=== PATIENT | male | born 1950 | race Caucasian/White ===

== ENCOUNTER → 2016-06-04 | Outpatient (REF) | payer MEDICARE ==
[~2016-06-04] MED LIST: AMLO10TA2 PO; ASPI81TA85 PO; ATEN50TA9 PO; GABA600T PO; LISI30TA4 PO; MAGN250T9 PO; OMEP10CASR PO; OMEP40CA2 PO; PERC5TAB6 PO; SIMV40TA2 PO; TYLE325T5 PO; [UNRECOGNIZED DRUG - CODE] PO; fenofibrate OR; multivitamin OR; tylenol OR; vitamin D OR
[2016-06-04 18:27] LABS: PERCENT SATURATION 23.1 % (19.7-37.4)
== END ==
LOC: M LAB REF 16:48
PROVIDERS: ATTEND Internal Medicine Nephrology
DX: D64.9 Anemia, unspecified (principal)

== ENCOUNTER → 2016-07-24 | Outpatient (REF) | payer MEDICARE ==
[2016-07-24 12:42] LABS: ALBUMIN 4.1 GM/DL (3.2-5.2); ALBUMIN/GLOBULIN RATIO 1.46 (1.00-1.93); BILIRUBIN,TOTAL 0.5 MG/DL (0.2-1.0); CALCIUM LEVEL 9.1 MG/DL (8.8-10.2); CREATININE FOR GFR 1.93 MG/DL (0.70-1.30); GLOMERULAR FILTRATION RATE 37.3 (>49); TOTAL PROTEIN 6.9 GM/DL (6.4-8.2)
== END ==
LOC: M SFHCCLAY 07:40
PROVIDERS: ATTEND Family Medicine
DX: E78.2 Mixed hyperlipidemia (principal); E11.8 Type 2 diabetes mellitus with unspecified complications; Z12.5 Encounter for screening for malignant neoplasm of prostate
CPT/HCPCS: 80053; 80061; 83036; G0103

== ENCOUNTER → 2016-07-29 | Outpatient (CLI) | payer MEDICARE ==
--- NOTE | 2016-07-29 09:56 | REP ---
Clinical: Dyspnea . Comparison: 04/12/2015 . Technique: PA and lateral. Findings: The mediastinum and cardiac silhouette are normal. The lung hughes are clear and without acute consolidation, effusion, or pneumothorax. The skeletal structures are intact and normal. Impression: 1. No acute cardiopulmonary process.
== END ==
LOC: M CLY 09:12
PROVIDERS: ATTEND Family Medicine
DX: R06.09 Other forms of dyspnea (principal)
CPT/HCPCS: 71020; G0463

== ENCOUNTER → 2017-07-28 | Outpatient (REF) | payer MEDICARE ==
[2017-07-28 12:17] LABS: ALBUMIN 4.2 GM/DL (3.2-5.2); ALKALINE PHOSPHATASE 39 U/L (45-117); ALT/SGPT 50 U/L (12-78); ANION GAP 6 MEQ/L (8-16); AST/SGOT 27 U/L (7-37); BILIRUBIN,TOTAL 0.6 MG/DL (0.2-1.0); BLOOD UREA NITROGEN 46 MG/DL (7-18); CALCIUM LEVEL 9.1 MG/DL (8.8-10.2); CARBON DIOXIDE LEVEL 25 MEQ/L (21-32); CHLORIDE LEVEL 110 MEQ/L (98-107); CHOLESTEROL LEVEL 131 MG/DL (<200); CREATININE FOR GFR 1.58 MG/DL (0.70-1.30); GLOMERULAR FILTRATION RATE 46.8 (>49); GLUCOSE, FASTING 114 MG/DL (70-100); HDL CHOLESTEROL 37 MG/DL (>40); LDL CHOLESTEROL 67.4 MG/DL (<100); NON-HDL-C 94 MG/DL; POTASSIUM SERUM 4.7 MEQ/L (3.5-5.1); PSA SCREENING 0.91 NG/ML (< 4.0); SODIUM LEVEL 141 MEQ/L (136-145); TOTAL PROTEIN 7.2 GM/DL (6.4-8.2); TRIGLYCERIDES LEVEL 133 MG/DL (<150)
[2017-07-28 12:23] LABS: ESTIMATED AVERAGE GLUCOSE 123 MG/DL (60-110); HEMOGLOBIN A1c 5.9 %
[2017-07-28 13:04] LABS: CREATININE, URINE 88.7 MG/DL; MALB URINE SIEMENS 13.5 MG/L; MAU/CREAT RATIO 15.2 MCG/MG (0.0-30.0)
== END ==
LOC: M SFHCCLAY 07:49
DX: E78.2 Mixed hyperlipidemia (principal); E11.8 Type 2 diabetes mellitus with unspecified complications; Z12.5 Encounter for screening for malignant neoplasm of prostate
CPT/HCPCS: 80053

== ENCOUNTER → 2017-12-11 | Outpatient (REF) | payer MEDICARE ==
[2017-12-11 11:49] LABS: ESTIMATED AVERAGE GLUCOSE 108 MG/DL (60-110); HEMOGLOBIN A1c 5.4 %
[2017-12-11 12:12] LABS: ALBUMIN 3.9 GM/DL (3.2-5.2); ALBUMIN/GLOBULIN RATIO 1.22 (1.00-1.93); ALKALINE PHOSPHATASE 61 U/L (45-117); ALT/SGPT 40 U/L (12-78); ANION GAP 7 MEQ/L (8-16); AST/SGOT 26 U/L (7-37); BILIRUBIN,TOTAL 0.5 MG/DL (0.2-1.0); BLOOD UREA NITROGEN 39 MG/DL (7-18); CALCIUM LEVEL 8.3 MG/DL (8.8-10.2); CARBON DIOXIDE LEVEL 26 MEQ/L (21-32); CHLORIDE LEVEL 107 MEQ/L (98-107); CREATININE FOR GFR 1.22 MG/DL (0.70-1.30); GLOMERULAR FILTRATION RATE > 60.0 (>49); GLUCOSE, FASTING 104 MG/DL (70-100); POTASSIUM SERUM 4.4 MEQ/L (3.5-5.1); SODIUM LEVEL 140 MEQ/L (136-145); TOTAL PROTEIN 7.1 GM/DL (6.4-8.2)
== END ==
LOC: M SFHCCLAY 08:24
DX: I12.9 Hypertensive chronic kidney disease with stage 1 through stage 4 chronic kidney disease, or unspecified chronic kidney disease (principal); R73.01 Impaired fasting glucose
CPT/HCPCS: 80053

== ENCOUNTER → 2018-06-10 | Outpatient (REF) | payer MEDICARE ==
[~2018-06-10] MED LIST changes: -AMLO10TA2 PO; +AMLO10TA5 PO; -GABA600T PO; +GABA600T4 PO; +LISI-672 PO; -LISI30TA4 PO; +PERC5TAB12 PO; -PERC5TAB6 PO
[2018-06-10 12:03] LABS: HEMOGLOBIN A1c 5.9 %
[2018-06-10 12:15] LABS: ALBUMIN 4.1 GM/DL (3.2-5.2); ALT/SGPT 52 U/L (12-78); BILIRUBIN,TOTAL 0.5 MG/DL (0.2-1.0); BLOOD UREA NITROGEN 50 MG/DL (7-18); CALCIUM LEVEL 8.6 MG/DL (8.8-10.2); CARBON DIOXIDE LEVEL 26 MEQ/L (21-32); CHLORIDE LEVEL 105 MEQ/L (98-107); CHOLESTEROL LEVEL 177 MG/DL (<200); CHOLESTEROL RISK RATIO 6.321 (<5); CREATININE FOR GFR 1.27 MG/DL (0.70-1.30); GLUCOSE, FASTING 129 MG/DL (70-100); HDL CHOLESTEROL 28 MG/DL (>40); NON-HDL-C 149 MG/DL; POTASSIUM SERUM 4.6 MEQ/L (3.5-5.1); SODIUM LEVEL 138 MEQ/L (136-145); TOTAL PROTEIN 6.8 GM/DL (6.4-8.2); TRIGLYCERIDES LEVEL 590 MG/DL (<150)
== END ==
LOC: M SFHCCLAY 08:11
PROVIDERS: ATTEND Family Medicine
DX: R73.01 Impaired fasting glucose (principal); E78.2 Mixed hyperlipidemia

== ENCOUNTER → 2018-06-16 | Outpatient (CLI) | payer MEDICARE ==
--- NOTE | 2018-06-16 10:07 | REP ---
BILATERAL HIP STUDY: Four views. HISTORY: Bilateral hip pain. FINDINGS: AP and frog-leg views of each hip are presented. There is fairly prominent tendon insertion site spurring noted bilaterally consistent with an enthesopathy. There is bilateral chondrocalcinosis at the hip and mild osteoarthritis of each hip is seen. Vascular calcification is noted. IMPRESSION: Tendon insertion site spurring present bilaterally consistent with enthesopathy. Mild osteoarthritis noted bilaterally. Chondrocalcinosis. No acute bony abnormality.
== END ==
LOC: M CLY 08:43
PROVIDERS: ATTEND Family Medicine
DX: M16.0 Bilateral primary osteoarthritis of hip (principal); M11.251 Other chondrocalcinosis, right hip; M11.252 Other chondrocalcinosis, left hip; M25.751 Osteophyte, right hip; M25.752 Osteophyte, left hip; M25.552 Pain in left hip; M25.551 Pain in right hip
CPT/HCPCS: 73502; G0463

== ENCOUNTER → 2018-08-07 | Outpatient (REF) | payer MEDICARE ==
[2018-08-07 14:32] LABS: BASO # 0.1 10^3/uL (0.0-0.2); BASO % 0.7 % (0.0-1.0); EOS # 0.2 10^3/uL (0.0-0.50); EOS % 2.7 % (0.0-3.0); HEMATOCRIT 44.9 % (42.0-52.0); HEMOGLOBIN 14.6 g/dl (13.5-17.5); LYMPH # 1.1 10^3/uL (1.5-4.5); LYMPH % 14.5 % (24.0-44.0); MEAN CORPUSCULAR HEMOGLOBIN 27.8 pg (27.0-33.0); MEAN CORPUSCULAR HGB CONC 32.5 g/dl (32.0-36.5); MEAN CORPUSCULAR VOLUME 85.5 fl (80.0-96.0); MONO # 0.6 10^3/uL (0.0-0.8); MONO % 8.2 % (0.0-5.0); NEUTROPHILS # 5.3 10^3/uL (1.8-7.7); NEUTROPHILS % 73.2 % (36.0-66.0); PLATELET COUNT, AUTOMATED 202 10^3/uL (150-450); RED BLOOD COUNT 5.25 10^6/uL (4.30-6.10); WHITE BLOOD COUNT 7.3 10^3/uL (4.0-10.0)
== END ==
LOC: M LAB REF 14:16
PROVIDERS: ATTEND Internal Medicine Nephrology
DX: N18.9 Chronic kidney disease, unspecified (principal); D63.1 Anemia in chronic kidney disease

== ENCOUNTER → 2018-12-17 | Outpatient (REF) | payer MEDICARE ==
[2018-12-17 11:41] LABS: ALBUMIN 3.7 GM/DL (3.2-5.2); ALT/SGPT 46 U/L (12-78); BILIRUBIN,TOTAL 0.5 MG/DL (0.2-1.0); BLOOD UREA NITROGEN 28 MG/DL (7-18); CALCIUM LEVEL 8.7 MG/DL (8.8-10.2); CARBON DIOXIDE LEVEL 29 MEQ/L (21-32); CHLORIDE LEVEL 104 MEQ/L (98-107); CHOLESTEROL LEVEL 148 MG/DL (<200); CHOLESTEROL RISK RATIO 5.285 (<5); CREATININE FOR GFR 1.21 MG/DL (0.70-1.30); GLOMERULAR FILTRATION RATE > 60.0 (>49); GLUCOSE, FASTING 119 MG/DL (70-100); HDL CHOLESTEROL 28 MG/DL (>40); NON-HDL-C 120 MG/DL; POTASSIUM SERUM 4.3 MEQ/L (3.5-5.1); SODIUM LEVEL 141 MEQ/L (136-145); TOTAL PROTEIN 6.7 GM/DL (6.4-8.2); TRIGLYCERIDES LEVEL 536 MG/DL (<150)
[2018-12-17 12:21] LABS: MALB URINE SIEMENS 62.2 MG/L; MAU/CREAT RATIO 51.8 MCG/MG (0.0-30.0)
== END ==
LOC: M SFHCCLAY 08:43
PROVIDERS: ATTEND Family Medicine
DX: E11.8 Type 2 diabetes mellitus with unspecified complications (principal); E78.2 Mixed hyperlipidemia; I10 Essential (primary) hypertension

== ENCOUNTER → 2018-12-22 | Outpatient (CLI) | payer MEDICARE ==
[~2018-12-22] MED LIST changes: -OMEP40CA2 PO; +OMEP40CA97 PO
--- NOTE | 2018-12-22 09:38 | REP ---
Chest x-ray: Two views. History: Cough. Comparison chest x-ray: July 29, 2016. Findings: The lungs are symmetrically aerated and clear. Pleural angles are sharp. Heart is not enlarged. There are degenerative changes in the thoracic spine. Multiple old rib fractures are noted bilaterally. Impression: No acute disease. Electronically Signed by Mahesh Lynn MD 12/22/2018 09:30 A
== END ==
LOC: M CLY 09:04
PROVIDERS: ATTEND Family Medicine
DX: M51.34 Other intervertebral disc degeneration, thoracic region (principal); R05 Cough
CPT/HCPCS: 71046; 90682; 94010; G0008; G0463

== ENCOUNTER → 2019-01-25 | Outpatient (CLI) | payer MEDICARE ==
--- NOTE | 2019-01-25 13:55 | REP ---
Three-phase bone scan of the lumbar spine and hips. History: Lumbar disc degeneration versus hip osteoarthritis. Question loose hardware versus hip osteoarthritis. Comparison hip radiographs are from June 16, 2018. Comparison lumbar spine series is from April 11, 2015. The patient is status post L4-5 dorsal fixation hardware placement. Technique: 22.0 mCi technetium 99m MDP is injected and standard three-phase imaging was acquired. Scintigraphic findings: The anterior and posterior flow study is normal. Blood pool images demonstrate bilateral renal uptake and normal vascular uptake. No abnormal soft tissue uptake is seen. Delayed scan images demonstrate no abnormal uptake in the lumbar spine to suggest hardware loosening in the lumbar spine. There is slightly asymmetric SI joint uptake, left slightly more prominent than right. There is arthritic uptake at the superior margin of the hip joints bilaterally, again left slightly more prominent than right. No other abnormal uptake is seen. Impression: Slightly asymmetric SI joint uptake. Arthritic uptake in the superior margin of each hip. Otherwise negative. Electronically Signed by Mahesh Lynn MD 01/25/2019 02:34 P
== END ==
LOC: M RAD 08:01
PROVIDERS: ATTEND Orthopaedic Surgery
DX: M51.37 Other intervertebral disc degeneration, lumbosacral region (principal); M16.0 Bilateral primary osteoarthritis of hip
CPT/HCPCS: 78315; A9503

== ENCOUNTER → 2019-07-12 | Outpatient (REF) | payer MEDICARE ==
[~2019-07-12] MED LIST changes: -SIMV40TA2 PO; +SIMV40TA20 PO
[2019-07-12 12:05] LABS: BILIRUBIN,TOTAL 0.7 MG/DL (0.2-1.0); CHOLESTEROL RISK RATIO 3.911 (<5); CREATININE FOR GFR 1.28 MG/DL (0.70-1.30); GLOMERULAR FILTRATION RATE 59.3 (>49); POTASSIUM SERUM 4.9 MEQ/L (3.5-5.1); TOTAL PROTEIN 7.1 GM/DL (6.4-8.2)
[2019-07-12 12:14] LABS: HEMOGLOBIN A1c 6.1 %
== END ==
LOC: M SFHCCLAY 08:42
PROVIDERS: ATTEND Family Medicine
DX: R73.01 Impaired fasting glucose (principal); E78.2 Mixed hyperlipidemia

== ENCOUNTER → 2019-11-16 | Outpatient (REF) | payer MEDICARE ==
[~2019-11-16] MED LIST changes: -AMLO10TA5 PO; +AMLO1TAB25 PO; -ASPI81TA85 PO; +ASPI81TA86 PO; -LISI-672 PO; +LISI30TA4 PO
== END ==
LOC: M LAB REF 11:11
PROVIDERS: ATTEND Surgery
DX: L72.3 Sebaceous cyst (principal)

== ENCOUNTER → 2020-04-13 | Outpatient (REF) | payer MEDICARE ==
[2020-04-13 11:55] LABS: BASO # 0.1 10^3/uL (0.0-0.2); BASO % 0.7 % (0.0-1.0); EOS # 0.2 10^3/uL (0.0-0.5); EOS % 3.1 % (0.0-3.0); HEMATOCRIT 47.1 % (42.0-52.0); HEMOGLOBIN 14.8 g/dl (13.5-17.5); LYMPH # 1.1 10^3/uL (1.5-5.0); LYMPH % 16.9 % (24.0-44.0); MEAN CORPUSCULAR HEMOGLOBIN 27.3 pg (27.0-33.0); MEAN CORPUSCULAR HGB CONC 31.4 g/dl (32.0-36.5); MEAN CORPUSCULAR VOLUME 86.9 fl (80.0-96.0); MONO # 0.6 10^3/uL (0.0-0.8); MONO % 8.6 % (0.0-5.0); NEUTROPHILS # 4.7 10^3/uL (1.5-8.5); NEUTROPHILS % 70.3 % (36.0-66.0); PLATELET COUNT, AUTOMATED 226 10^3/uL (150-450); RED BLOOD COUNT 5.42 10^6/uL (4.30-6.10); WHITE BLOOD COUNT 6.7 10^3/uL (4.0-10.0)
[2020-04-13 13:23] LABS: BILIRUBIN,TOTAL 0.7 MG/DL (0.2-1.0); CALCIUM LEVEL 9.5 MG/DL (8.8-10.2); CREATININE FOR GFR 1.31 MG/DL (0.70-1.30); GLOMERULAR FILTRATION RATE 57.6 (>42)
[2020-04-13 13:24] LABS: CHOLESTEROL RISK RATIO 4.25 (<5)
[2020-04-13 15:29] LABS: HEMOGLOBIN A1c 5.5 %
== END ==
LOC: M SFHCCLAY 08:24
PROVIDERS: ATTEND Family Medicine
DX: E78.2 Mixed hyperlipidemia (principal); I10 Essential (primary) hypertension; R73.01 Impaired fasting glucose

== ENCOUNTER → 2020-09-20 | Outpatient (REF) | payer MEDICARE ==
[~2020-09-20] MED LIST changes: +OMEP40CA4 PO; -OMEP40CA97 PO
== END ==
LOC: M LAB REF 17:18
PROVIDERS: ATTEND Internal Medicine Nephrology
DX: E83.42 Hypomagnesemia (principal)

== ENCOUNTER → 2020-12-07 | Outpatient (REF) | payer MEDICARE ==
[2020-12-07 12:58] LABS: BLOOD UREA NITROGEN 32 MG/DL (7-18); CALCIUM LEVEL 8.4 MG/DL (8.8-10.2); CARBON DIOXIDE LEVEL 26 MEQ/L (21-32); CHLORIDE LEVEL 106 MEQ/L (98-107); GLOMERULAR FILTRATION RATE > 60.0 (>42); GLUCOSE, FASTING 113 MG/DL (70-100); POTASSIUM SERUM 4.3 MEQ/L (3.5-5.1); SODIUM LEVEL 140 MEQ/L (136-145)
[2020-12-07 13:46] LABS: HEMOGLOBIN A1c 5.9 %
== END ==
LOC: M SFHCCLAY 07:33
PROVIDERS: ATTEND Family Medicine
DX: R73.01 Impaired fasting glucose (principal)

== ENCOUNTER → 2021-07-09 | Outpatient (REF) | payer MEDICARE ==
[2021-07-09 12:15] LABS: BILIRUBIN,TOTAL 0.8 MG/DL (0.2-1.0); CALCIUM LEVEL 9.2 MG/DL (8.8-10.2); CHOLESTEROL RISK RATIO 4.593 (<5); CREATININE FOR GFR 1.33 MG/DL (0.70-1.30); GLOMERULAR FILTRATION RATE 56.4 (>42); POTASSIUM SERUM 4.5 MEQ/L (3.5-5.1); TOTAL PROTEIN 6.8 GM/DL (6.4-8.2)
[2021-07-09 14:57] LABS: HEMOGLOBIN A1c 5.4 %
== END ==
LOC: M SFHCCLAY 07:41
PROVIDERS: ATTEND Family Medicine
DX: I12.9 Hypertensive chronic kidney disease with stage 1 through stage 4 chronic kidney disease, or unspecified chronic kidney disease (principal); R73.01 Impaired fasting glucose; E78.2 Mixed hyperlipidemia; N18.9 Chronic kidney disease, unspecified

== ENCOUNTER → 2021-10-12 | Outpatient (CLI) | payer MEDICARE | LOC: M RAD 15:01 | PROVIDERS: ATTEND Physician Assistant | DX: I70.213 Atherosclerosis of native arteries of extremities with intermittent claudication, bilateral legs (principal); Z48.812 Encounter for surgical aftercare following surgery on the circulatory system ==

== ENCOUNTER → 2021-12-19 | Outpatient (CLI) | payer MEDICARE | LOC: M RAD 12-17 09:02 | PROVIDERS: ATTEND Neurological Surgery | DX: M51.16 Intervertebral disc disorders with radiculopathy, lumbar region (principal); G95.9 Disease of spinal cord, unspecified; G89.29 Other chronic pain; M50.221 Other cervical disc displacement at C4-C5 level; M25.78 Osteophyte, vertebrae; M47.812 Spondylosis without myelopathy or radiculopathy, cervical region; M48.02 Spinal stenosis, cervical region; Z98.1 Arthrodesis status; M47.816 Spondylosis without myelopathy or radiculopathy, lumbar region ==

== ENCOUNTER → 2021-12-20 | Outpatient (REF) | payer MEDICARE ==
[2021-12-20 11:22] LABS: BASO # 0.1 10^3/uL (0.0-0.2); BASO % 1.1 % (0.0-1.0); EOS # 0.3 10^3/uL (0.0-0.5); EOS % 3.6 % (0.0-3.0); HEMATOCRIT 42.9 % (42.0-52.0); HEMOGLOBIN 13.8 g/dl (13.5-17.5); LYMPH # 1.6 10^3/uL (1.5-5.0); LYMPH % 20.5 % (24.0-44.0); MEAN CORPUSCULAR HEMOGLOBIN 28.6 pg (27.0-33.0); MEAN CORPUSCULAR HGB CONC 32.2 g/dl (32.0-36.5); MEAN CORPUSCULAR VOLUME 88.8 fl (80.0-96.0); MONO # 0.6 10^3/uL (0.0-0.8); MONO % 7.8 % (2.0-8.0); NEUTROPHILS % 66.6 % (36.0-66.0); PLATELET COUNT, AUTOMATED 204 10^3/uL (150-450); RED BLOOD COUNT 4.83 10^6/uL (4.30-6.10); WHITE BLOOD COUNT 7.6 10^3/uL (4.0-10.0)
[2021-12-20 11:46] LABS: HEMOGLOBIN A1c 5.9 %
[2021-12-20 12:14] LABS: ALBUMIN 3.8 GM/DL (3.2-5.2); BILIRUBIN,TOTAL 0.6 MG/DL (0.2-1.0); CALCIUM LEVEL 8.8 MG/DL (8.8-10.2); CREATININE FOR GFR 1.27 MG/DL (0.70-1.30); GLOMERULAR FILTRATION RATE 59.5 (>42); POTASSIUM SERUM 4.4 MEQ/L (3.5-5.1); TOTAL PROTEIN 6.5 GM/DL (6.4-8.2)
== END ==
LOC: M SFHCCLAY 07:41
PROVIDERS: ATTEND Family Medicine
DX: I12.9 Hypertensive chronic kidney disease with stage 1 through stage 4 chronic kidney disease, or unspecified chronic kidney disease (principal); R73.01 Impaired fasting glucose; N18.9 Chronic kidney disease, unspecified

== ENCOUNTER → 2021-12-21 | Outpatient (CLI) | payer MEDICARE | LOC: M RAD 08:08 | PROVIDERS: ATTEND Neurological Surgery | DX: M54.42 Lumbago with sciatica, left side (principal); M54.41 Lumbago with sciatica, right side; G89.29 Other chronic pain; M47.816 Spondylosis without myelopathy or radiculopathy, lumbar region; M51.26 Other intervertebral disc displacement, lumbar region; M48.061 Spinal stenosis, lumbar region without neurogenic claudication ==

== ENCOUNTER → 2022-05-24 | Outpatient (CLI) | payer MEDICARE | LOC: M LABSMTC 10:55 | PROVIDERS: ATTEND Neurological Surgery | DX: Z01.812 Encounter for preprocedural laboratory examination (principal); Z20.822 Contact with and (suspected) exposure to COVID-19; G95.9 Disease of spinal cord, unspecified ==

== ENCOUNTER → 2022-12-23 | Outpatient (REF) | payer MEDICARE ==
[2022-12-23 12:50] LABS: HEMOGLOBIN A1c 5.4 % (4.0-6.0)
[2022-12-23 13:05] LABS: ALKALINE PHOSPHATASE 78 U/L (46-116); ALT/SGPT 62 U/L (7.0-40); AST/SGOT 35 U/L (<34); BILIRUBIN,TOTAL 0.7 MG/DL (0.3-1.2); BLOOD UREA NITROGEN 43 MG/DL (9-23); CARBON DIOXIDE LEVEL 26 MMOL/L (20-31); CHLORIDE LEVEL 107 MMOL/L (98-107); CHOLESTEROL LEVEL 142 MG/DL (<200); CHOLESTEROL RISK RATIO 4.06 (<5); CREATININE FOR GFR 1.14 MG/DL (0.70-1.30); GLOMERULAR FILTRATION RATE > 60.0 (>42); GLUCOSE, FASTING 126 MG/DL (74-106); HDL CHOLESTEROL 34.9 MG/DL (>40); LDL CHOLESTEROL 32.1 MG/DL (<100); NON-HDL-C 107.1 MG/DL; POTASSIUM SERUM 4.6 MMOL/L (3.5-5.1); SODIUM LEVEL 141 MMOL/L (136-145); TOTAL PROTEIN 6.5 G/DL (5.7-8.2); TRIGLYCERIDES LEVEL 375 MG/DL (<150)
== END ==
LOC: M SFHCCLAY 07:38
PROVIDERS: ATTEND Family Medicine
DX: R73.01 Impaired fasting glucose (principal); Z12.5 Encounter for screening for malignant neoplasm of prostate
CPT/HCPCS: 80053; 80061; 83036; G0103

== ENCOUNTER → 2022-12-24 | Outpatient (CLI) | payer MEDICARE | LOC: M CLY 09:33 | PROVIDERS: ATTEND Family Medicine | DX: Z00.00 Encounter for general adult medical examination without abnormal findings (principal); M70.62 Trochanteric bursitis, left hip; M25.551 Pain in right hip; M25.552 Pain in left hip; I12.9 Hypertensive chronic kidney disease with stage 1 through stage 4 chronic kidney disease, or unspecified chronic kidney disease; N18.31 Chronic kidney disease, stage 3a; Z23 Encounter for immunization; M54.2 Cervicalgia; M1A.0710 Idiopathic chronic gout, right ankle and foot, without tophus (tophi); J41.0 Simple chronic bronchitis; E78.2 Mixed hyperlipidemia; G47.33 Obstructive sleep apnea (adult) (pediatric); K21.9 Gastro-esophageal reflux disease without esophagitis; M54.16 Radiculopathy, lumbar region; R73.01 Impaired fasting glucose | CPT/HCPCS: 73502; 90662; G0008; G0463 ==

== ENCOUNTER → 2022-12-24 | Outpatient (CLI) | payer MEDICARE | LOC: M CLY 08:59 | PROVIDERS: ATTEND Family Medicine | DX: M25.551 Pain in right hip (principal); M25.552 Pain in left hip ==

== ENCOUNTER → 2023-03-31 | Outpatient (CLI) | payer MEDICARE | LOC: M RAD 10:24 | PROVIDERS: ATTEND Neurological Surgery | DX: M48.062 Spinal stenosis, lumbar region with neurogenic claudication (principal); M47.816 Spondylosis without myelopathy or radiculopathy, lumbar region; M43.16 Spondylolisthesis, lumbar region; Z98.1 Arthrodesis status ==

== ENCOUNTER → 2023-05-16 | Outpatient (REF) | payer MEDICARE ==
[2023-05-16 12:39] LABS: ALBUMIN 4.2 G/DL (3.2-5.2); ALKALINE PHOSPHATASE 63 U/L (46-116); ALT/SGPT 46 U/L (7.0-40); AST/SGOT 33 U/L (<34); BILIRUBIN,TOTAL 0.7 MG/DL (0.3-1.2); BLOOD UREA NITROGEN 51 MG/DL (9-23); CALCIUM LEVEL 9.2 MG/DL (8.3-10.6); CARBON DIOXIDE LEVEL 26 MMOL/L (20-31); CHLORIDE LEVEL 104 MMOL/L (98-107); CREATININE FOR GFR 1.24 MG/DL (0.70-1.30); GLOMERULAR FILTRATION RATE > 60.0 (>42); GLUCOSE, FASTING 111 MG/DL (74-106); POTASSIUM SERUM 4.7 MMOL/L (3.5-5.1); SODIUM LEVEL 135 MMOL/L (136-145); TOTAL PROTEIN 6.7 G/DL (5.7-8.2)
== END ==
LOC: M SFHCCLAY 08:30
PROVIDERS: ATTEND Family Medicine
DX: I12.9 Hypertensive chronic kidney disease with stage 1 through stage 4 chronic kidney disease, or unspecified chronic kidney disease (principal)

== ENCOUNTER → 2023-06-05 | Outpatient (CLI) | payer MEDICARE | LOC: M CLY 15:05 | PROVIDERS: ATTEND Family Medicine | DX: M19.012 Primary osteoarthritis, left shoulder (principal); M77.8 Other enthesopathies, not elsewhere classified ==

== ENCOUNTER → 2023-06-30 | Outpatient (CLI) | payer MEDICARE | LOC: M PLAIMG 11:19 | PROVIDERS: ATTEND Neurological Surgery | DX: M48.062 Spinal stenosis, lumbar region with neurogenic claudication (principal); Z98.1 Arthrodesis status; M51.35 Other intervertebral disc degeneration, thoracolumbar region; M47.816 Spondylosis without myelopathy or radiculopathy, lumbar region ==

== ENCOUNTER → 2023-09-29 | Outpatient (REF) | payer MEDICARE ==
[2023-09-29 19:16] LABS: BASO # 0.1 10^3/uL (0.0-0.2); BASO % 0.6 % (0.0-1.0); EOS # 0.2 10^3/uL (0.0-0.5); EOS % 2.5 % (0.0-3.0); HEMATOCRIT 45.1 % (42.0-52.0); HEMOGLOBIN 14.4 g/dl (13.5-17.5); LYMPH # 1.6 10^3/uL (1.5-5.0); LYMPH % 17.4 % (24.0-44.0); MEAN CORPUSCULAR HEMOGLOBIN 28.4 pg (27.0-33.0); MEAN CORPUSCULAR HGB CONC 31.9 g/dl (32.0-36.5); MONO # 0.9 10^3/uL (0.0-0.8); MONO % 9.1 % (2.0-8.0); NEUTROPHILS # 6.6 10^3/uL (1.5-8.5); NEUTROPHILS % 69.8 % (36.0-66.0); PLATELET COUNT, AUTOMATED 232 10^3/uL (150-450); RED BLOOD COUNT 5.07 10^6/uL (4.30-6.10); WHITE BLOOD COUNT 9.5 10^3/uL (4.0-10.0)
[2023-09-29 19:45] LABS: ALKALINE PHOSPHATASE 83 U/L (46-116); ALT/SGPT 43 U/L (7.0-40); AST/SGOT 21 U/L (<34); BILIRUBIN,TOTAL 0.6 MG/DL (0.3-1.2); BLOOD UREA NITROGEN 38 MG/DL (9-23); CARBON DIOXIDE LEVEL 28 MMOL/L (20-31); CHLORIDE LEVEL 106 MMOL/L (98-107); CREATININE FOR GFR 1.18 MG/DL (0.70-1.30); GLOMERULAR FILTRATION RATE > 60.0 (>42); GLUCOSE, FASTING 103 MG/DL (74-106); POTASSIUM SERUM 4.7 MMOL/L (3.5-5.1); SODIUM LEVEL 140 MMOL/L (136-145); TOTAL PROTEIN 6.7 G/DL (5.7-8.2)
[2023-09-29 19:46] LABS: HEMOGLOBIN A1c 5.6 % (4.0-6.0)
== END ==
LOC: M SFHCCLAY 09:27
PROVIDERS: ATTEND Physician Assistant
DX: Z01.818 Encounter for other preprocedural examination (principal); I10 Essential (primary) hypertension; I12.9 Hypertensive chronic kidney disease with stage 1 through stage 4 chronic kidney disease, or unspecified chronic kidney disease; R73.01 Impaired fasting glucose

== ENCOUNTER 2023-10-12 12:13 | Emergency (ER) | payer MEDICARE ==
[~2023-10-12] VITALS: Ht 177.8 cm; Wt 113.6 kg
[2023-10-12 12:14] VITALS: TEMP 97.5
[2023-10-12] MEDS ORDERED: CHLO125TA (12:36)
[2023-10-12] MEDS ORDERED: LISI40TA4 (12:36)
[2023-10-12] MEDS ORDERED: TREL1AER (12:36)
[2023-10-12] MEDS ORDERED: OMEP-173 (12:36)
[2023-10-12] MEDS ORDERED: COLC0.6T47 (12:36)
[2023-10-12] MEDS ORDERED: ALLO300T2 (12:36)
[2023-10-12] MEDS ORDERED: SIMV20TA22 (12:36)
[2023-10-12] MEDS ORDERED: TRAM50TA2 (12:36)
[2023-10-12] MEDS ORDERED: NEBI20TA2 (12:36)
[2023-10-12 13:30] VITALS: BP 161/77
[2023-10-12 13:34] LABS: BASO # 0.1 10^3/uL (0.0-0.2); BASO % 0.5 % (0.0-1.0); EOS # 0.2 10^3/uL (0.0-0.5); EOS % 1.5 % (0.0-3.0); HEMATOCRIT 38.1 % (42.0-52.0); HEMOGLOBIN 12.6 g/dl (13.5-17.5); LYMPH # 1.1 10^3/uL (1.5-5.0); MEAN CORPUSCULAR HEMOGLOBIN 28.8 pg (27.0-33.0); MEAN CORPUSCULAR HGB CONC 33.1 g/dl (32.0-36.5); MEAN CORPUSCULAR VOLUME 87.2 fl (80.0-96.0); MONO # 0.9 10^3/uL (0.0-0.8); MONO % 7.7 % (2.0-8.0); NEUTROPHILS # 8.9 10^3/uL (1.5-8.5); NEUTROPHILS % 79.5 % (36.0-66.0); PLATELET COUNT, AUTOMATED 179 10^3/uL (150-450); RED BLOOD COUNT 4.37 10^6/uL (4.30-6.10); WHITE BLOOD COUNT 11.2 10^3/uL (4.0-10.0)
[2023-10-12 13:44] LABS: INR 1.03; PROTHROMBIN TIME 13.2 SECONDS (12.5-14.5)
[2023-10-12 14:00] LABS: ALBUMIN 3.5 G/DL (3.2-5.2); ALKALINE PHOSPHATASE 75 U/L (46-116); ALT/SGPT 63 U/L (7.0-40); AST/SGOT 89 U/L (<34); BILIRUBIN,DIRECT 0.2 MG/DL (<0.4); BILIRUBIN,TOTAL 0.8 MG/DL (0.3-1.2); BLOOD UREA NITROGEN 27 MG/DL (9-23); CALCIUM LEVEL 8.8 MG/DL (8.3-10.6); CARBON DIOXIDE LEVEL 25 MMOL/L (20-31); CHLORIDE LEVEL 104 MMOL/L (98-107); CK-MB VALUE MASS 5.7 NG/ML (<3.6); CREATININE FOR GFR 1.03 MG/DL (0.70-1.30); GLOMERULAR FILTRATION RATE > 60.0 (>42); GLUCOSE, FASTING 100 MG/DL (74-106); POTASSIUM SERUM 4.4 MMOL/L (3.5-5.1); SODIUM LEVEL 136 MMOL/L (136-145); TOTAL PROTEIN 6.2 G/DL (5.7-8.2)
[2023-10-12] MEDS ORDERED: ISOVUE-370 76% 100ML VIAL As Ordered ONE (14:05)
[2023-10-12 14:13] LABS: CPK CREATINE PHOSPHOKINASE 1927 U/L (46-171); MB/CK RELATIVE INDEX 0.29 (< OR =4)
[2023-10-12 15:13] VITALS: O2SAT 96
== END 2023-10-12 15:57 | disposition home or self-care (01) ==
LOC: M ED 12:13
DX: G89.18 Other acute postprocedural pain (principal); R91.8 Other nonspecific abnormal finding of lung field; I12.9 Hypertensive chronic kidney disease with stage 1 through stage 4 chronic kidney disease, or unspecified chronic kidney disease; J44.9 Chronic obstructive pulmonary disease, unspecified; N18.30 Chronic kidney disease, stage 3 unspecified; I73.9 Peripheral vascular disease, unspecified; Z88.8 Allergy status to other drugs, medicaments and biological substances; Z88.5 Allergy status to narcotic agent; Z79.899 Other long term (current) drug therapy
CPT/HCPCS: 36415; 71275; 74177; 80048; 80076; 82550; 82553; 84484; 85025; 85610; 93005; 93041; 94760; 99285; Q9967

== ENCOUNTER → 2023-10-22 | Outpatient (CLI) | payer MEDICARE ==
[~2023-10-22] MED LIST changes: +ALLO300T2; +CHLO125TA; +COLC0.6T47; +LISI40TA4; +NEBI20TA2; +OMEP-173; +SIMV20TA22; +TRAM50TA2; +TREL1AER
== END ==
LOC: M PLAIMG 09:27
PROVIDERS: ATTEND Family Medicine
DX: I44.7 Left bundle-branch block, unspecified (principal); I08.1 Rheumatic disorders of both mitral and tricuspid valves; I27.20 Pulmonary hypertension, unspecified

== ENCOUNTER → 2023-12-29 | Outpatient (REF) | payer MEDICARE ==
[~2023-12-29] MED LIST changes: +GABA-1490 PO; -GABA600T4 PO
[2023-12-29 15:52] LABS: ALBUMIN 3.8 G/DL (3.2-5.2); ALKALINE PHOSPHATASE 112 U/L (46-116); ALT/SGPT 43 U/L (7.0-40); AST/SGOT 26 U/L (<34); BILIRUBIN,TOTAL 0.5 MG/DL (0.3-1.2); BLOOD UREA NITROGEN 35 MG/DL (9-23); CALCIUM LEVEL 9.4 MG/DL (8.3-10.6); CARBON DIOXIDE LEVEL 28 MMOL/L (20-31); CHLORIDE LEVEL 109 MMOL/L (98-107); CHOLESTEROL LEVEL 156 MG/DL (<200); CREATININE FOR GFR 1.16 MG/DL (0.70-1.30); GLOMERULAR FILTRATION RATE > 60.0 (>42); GLUCOSE, FASTING 120 MG/DL (74-106); HDL CHOLESTEROL 34.6 MG/DL (>40); NON-HDL-C 121.4 MG/DL; POTASSIUM SERUM 4.5 MMOL/L (3.5-5.1); SODIUM LEVEL 142 MMOL/L (136-145); TOTAL PROTEIN 6.6 G/DL (5.7-8.2); TRIGLYCERIDES LEVEL 397 MG/DL (<150)
[2023-12-29 16:13] LABS: HEMOGLOBIN A1c 5.9 % (4.0-6.0)
== END ==
LOC: M SFHCCLAY 08:39
PROVIDERS: ATTEND Family Medicine
DX: R73.01 Impaired fasting glucose (principal); I10 Essential (primary) hypertension

== ENCOUNTER → 2024-03-29 | Outpatient (REF) | payer MEDICARE ==
[2024-03-29 12:22] LABS: ALBUMIN 3.7 G/DL (3.2-5.2); ALKALINE PHOSPHATASE 95 U/L (40-129); ALT/SGPT 47 U/L (7.0-40); AST/SGOT 25 U/L (<34); BILIRUBIN,TOTAL 0.5 MG/DL (0.3-1.2); BLOOD UREA NITROGEN 28 MG/DL (9-23); CALCIUM LEVEL 8.8 MG/DL (8.3-10.6); CARBON DIOXIDE LEVEL 28 MMOL/L (20-31); CHLORIDE LEVEL 105 MMOL/L (98-107); CREATININE FOR GFR 1.05 MG/DL (0.70-1.30); GLOMERULAR FILTRATION RATE > 60.0 (>42); GLUCOSE, FASTING 124 MG/DL (74-106); POTASSIUM SERUM 4.4 MMOL/L (3.5-5.1); SODIUM LEVEL 142 MMOL/L (136-145); TOTAL PROTEIN 6.8 G/DL (5.7-8.2)
== END ==
LOC: M SFHCCLAY 08:44
PROVIDERS: ATTEND Family Medicine
DX: I12.9 Hypertensive chronic kidney disease with stage 1 through stage 4 chronic kidney disease, or unspecified chronic kidney disease (principal); N18.9 Chronic kidney disease, unspecified

== ENCOUNTER → 2024-04-16 | Outpatient (REF) | payer MEDICARE ==
[2024-04-16 11:41] LABS: BASO # 0.1 10^3/uL (0.0-0.2); BASO % 0.9 % (0.0-1.0); EOS # 0.2 10^3/uL (0.0-0.5); EOS % 2.7 % (0.0-3.0); HEMATOCRIT 44.4 % (42.0-52.0); HEMOGLOBIN 14.6 g/dl (13.5-17.5); LYMPH # 1.4 10^3/uL (1.5-5.0); LYMPH % 20.7 % (24.0-44.0); MEAN CORPUSCULAR HEMOGLOBIN 28.6 pg (27.0-33.0); MEAN CORPUSCULAR HGB CONC 32.9 g/dl (32.0-36.5); MEAN CORPUSCULAR VOLUME 86.9 fl (80.0-96.0); MONO # 0.5 10^3/uL (0.0-0.8); MONO % 7.9 % (2.0-8.0); NEUTROPHILS # 4.5 10^3/uL (1.5-8.5); NEUTROPHILS % 67.5 % (36.0-66.0); PLATELET COUNT, AUTOMATED 205 10^3/uL (150-450); RED BLOOD COUNT 5.11 10^6/uL (4.30-6.10); WHITE BLOOD COUNT 6.7 10^3/uL (4.0-10.0)
[2024-04-16 11:57] LABS: HEMOGLOBIN A1c 5.9 % (4.0-6.0)
[2024-04-16 12:14] LABS: ALBUMIN 3.9 G/DL (3.2-5.2); ALKALINE PHOSPHATASE 90 U/L (40-129); ALT/SGPT 32 U/L (7.0-40); AST/SGOT 18 U/L (<34); BILIRUBIN,TOTAL 0.6 MG/DL (0.3-1.2); BLOOD UREA NITROGEN 39 MG/DL (9-23); CALCIUM LEVEL 8.9 MG/DL (8.3-10.6); CARBON DIOXIDE LEVEL 26 MMOL/L (20-31); CHLORIDE LEVEL 106 MMOL/L (98-107); CREATININE FOR GFR 1.15 MG/DL (0.70-1.30); FREE T4 1.19 NG/DL (0.89-1.76); GLOMERULAR FILTRATION RATE > 60.0 (>42); GLUCOSE, FASTING 130 MG/DL (74-106); POTASSIUM SERUM 4.5 MMOL/L (3.5-5.1); SODIUM LEVEL 143 MMOL/L (136-145); TOTAL PROTEIN 6.9 G/DL (5.7-8.2)
[2024-04-16 12:15] LABS: VITAMIN B12 LEVEL 376 PG/ML (211-911)
[2024-04-16 12:16] LABS: FOLATE > 24.0 NG/ML (>5.4); THYROID STIMULATING HORMONE 2.924 uIU/ML (0.55-4.78)
[2024-04-17 08:33] LABS: T P ELECTROPHORESIS SO 6.7 g/dL (6.1-8.1)
== END ==
LOC: M LABDRAWC 10:40
PROVIDERS: ATTEND Psychiatry & Neurology Neurology
DX: E03.9 Hypothyroidism, unspecified (principal); E11.40 Type 2 diabetes mellitus with diabetic neuropathy, unspecified; R53.1 Weakness; R20.2 Paresthesia of skin

== ENCOUNTER → 2024-06-10 | Outpatient (CLI) | payer MEDICARE | LOC: M RAD 10:35 | PROVIDERS: ATTEND Physician Assistant | DX: I70.203 Unspecified atherosclerosis of native arteries of extremities, bilateral legs (principal) ==

== ENCOUNTER → 2024-07-08 | Outpatient (CLI) | payer MEDICARE ==
[~2024-07-08] MED LIST changes: +ISOVUE-370 76% 100ML VIAL As Ordered ONE
== END ==
LOC: M RAD 09:17
PROVIDERS: ATTEND Physician Assistant
DX: I73.9 Peripheral vascular disease, unspecified (principal)
CPT/HCPCS: 75635; Q9967

== ENCOUNTER → 2024-07-22 | Outpatient (CLI) | payer MEDICARE ==
[~2024-07-22] MED LIST changes: -ISOVUE-370 76% 100ML VIAL As Ordered ONE
== END ==
LOC: M SOG 09:27
PROVIDERS: ATTEND Orthopaedic Surgery Hand Surgery
DX: M25.521 Pain in right elbow (principal)

== ENCOUNTER → 2024-10-25 | Outpatient (CLI) | payer MEDICARE ==
[~2024-10-25] MED LIST changes: -ALLO300T2; +ALLO300T2 PO; +CHLO50TA PO; +CLOP75TA2 PO; -COLC0.6T47; +COLC0.6T47 PO; +ECOT81TA5 PO; +EPLE25TA15 PO; +FLUT1BLS8; +LISI40TA10 PO; -LISI40TA4; +MULTTAB61 PO; -NEBI20TA2; +NEBI20TA2 PO; -OMEP-173; +OMEP-173 PO; +OSTETAB2 PO; +PREG100C2 PO; -SIMV20TA22; +SIMV20TA22 PO; +TYLE650T38 PO; +VITA100093 PO
== END ==
LOC: M CLY 09:10
PROVIDERS: ATTEND Family Medicine
DX: R05.9 Cough, unspecified (principal); Z53.9 Procedure and treatment not carried out, unspecified reason

== ENCOUNTER → 2024-10-25 | Outpatient (CLI) | payer MEDICARE | LOC: M CLY 08:51 | PROVIDERS: ATTEND Family Medicine | DX: R05.9 Cough, unspecified (principal) ==

== ENCOUNTER → 2025-01-03 | Outpatient (REF) | payer MEDICARE ==
[~2025-01-03] MED LIST changes: -COLC0.6T47 PO; +COLC0.6T53 PO
[2025-01-03 13:20] LABS: BASO # 0.1 10^3/uL (0.0-0.2); BASO % 1.1 % (0.0-1.0); EOS # 0.2 10^3/uL (0.0-0.5); EOS % 3.2 % (0.0-3.0); LYMPH # 1.1 10^3/uL (1.5-5.0); LYMPH % 16.4 % (24.0-44.0); MONO # 0.6 10^3/uL (0.0-0.8); MONO % 8.3 % (2.0-8.0); NEUTROPHILS # 4.7 10^3/uL (1.5-8.5); NEUTROPHILS % 70.5 % (36.0-66.0); PLATELET COUNT, AUTOMATED 213 10^3/uL (150-450)
[2025-01-03 13:33] LABS: ALT/SGPT 44.0 U/L (7.0-40); AST/SGOT 29.0 U/L (<34); CALCIUM LEVEL 9.0 MG/DL (8.3-10.6); CARBON DIOXIDE LEVEL 21.0 MMOL/L (20-31); CHLORIDE LEVEL 111.0 MMOL/L (98-107); CHOLESTEROL LEVEL 136.0 MG/DL (<200); CHOLESTEROL RISK RATIO 4.65 (<5); CREATININE FOR GFR 1.32 MG/DL (0.70-1.30); GLOMERULAR FILTRATION RATE 56.6 (>42); LDL CHOLESTEROL 45.2 MG/DL (<100); MAGNESIUM LEVEL 1.6 MG/DL (1.8-2.4); NON-HDL-C 106.8 MG/DL; POTASSIUM SERUM 5.1 MMOL/L (3.5-5.1); SODIUM LEVEL 144.0 MMOL/L (136-145); TRIGLYCERIDES LEVEL 308.0 MG/DL (<150)
[2025-01-03 13:42] LABS: ESTIMATED AVERAGE GLUCOSE 123.0 MG/DL (60-110)
== END ==
LOC: M SFHCCLAY 08:15
PROVIDERS: ATTEND Family Medicine
DX: I12.9 Hypertensive chronic kidney disease with stage 1 through stage 4 chronic kidney disease, or unspecified chronic kidney disease (principal); R73.01 Impaired fasting glucose; N18.9 Chronic kidney disease, unspecified

== ENCOUNTER → 2025-03-03 | Outpatient (REF) | payer MEDICARE ==
[2025-03-03 12:16] LABS: PLATELET COUNT, AUTOMATED 272 10^3/uL (150-450)
[2025-03-03 12:21] LABS: IRON (FE) 52.0 UG/DL (65-175)
[2025-03-03 12:22] LABS: ALT/SGPT 46.0 U/L (7.0-40); AST/SGOT 33.0 U/L (<34); CALCIUM LEVEL 9.1 MG/DL (8.3-10.6); CARBON DIOXIDE LEVEL 26.0 MMOL/L (20-31); CHLORIDE LEVEL 108.0 MMOL/L (98-107); CREATININE FOR GFR 1.44 MG/DL (0.70-1.30); GLOMERULAR FILTRATION RATE 51.0 (>42); POTASSIUM SERUM 5.3 MMOL/L (3.5-5.1); SODIUM LEVEL 142.0 MMOL/L (136-145)
== END ==
LOC: M SFHCCLAY 08:54
PROVIDERS: ATTEND Family Medicine
DX: I12.9 Hypertensive chronic kidney disease with stage 1 through stage 4 chronic kidney disease, or unspecified chronic kidney disease (principal); D64.9 Anemia, unspecified